=== PATIENT | male | born 1945 | race Caucasian/White ===

== ENCOUNTER → 2017-04-02 | Outpatient (CLI) | payer MEDICARE ==
--- NOTE | 2017-04-02 22:58 | XCELERA REPORT ---
[address] [address] Transthoracic Echocardiogram Report Name: CLIFF DONATO Age: 71 yrs Gender: Male : 1945 Patient Status: Outpatient Patient Location: Study Date: 04/02/2017 07:54 AM Height: 68 in Weight: 150 lb BSA: 1.8 m2 Procedure: A complete two-dimensional transthoracic echocardiogram was performed (2D, M-mode, spectral and color flow Doppler). The study was technically adequate with some images being suboptimal in quality. Reason For Study: MURMUR Ordering Physician: GARY BROWN Performed By: Mindy Leroy Interpretation Summary The left ventricular ejection fraction is within normal limits. Doppler measurements suggest pseudonormalized left ventricular relaxation, which is associated with grade II/IV or mild to moderate diastolic dysfunction There is borderline concentric left ventricular hypertrophy. The left ventricle is grossly normal size. Wall motion cannot be accurately commented on, but no definite regional wall motion abnormalities noted. The right ventricle is mildly dilated. The right ventricle appears to be hypertrophied The left atrium is mildly dilated. The right atrium is mildly dilated. Highly mobile mass consistent with a torn or redundant chordae seen. Also consider vegetation in DD if clinically consoistent. There is a moderate to severe amount of mitral regurgitation There is no mitral valve stenosis. There is a mild amount of aortic regurgitation There is no aortic valve stenosis There is a mild amount of tricuspid regurgitation There is moderate pulmonary hypertension by echo Right ventricular systolic pressure is estimated to be elevated at 40- 50mmHg. The aortic root is not well visualized but is probably normal size. The inferior vena cava appeared normal and decreased > 50% with respiration (RAP 5-10 mmHg) Minimal pericardial effusion. MMode/2D Measurements \T\ Calculations RVDd: 2.8 cm LVIDd: 5.0 cm FS: 53.5 % Ao root diam: 3.0 cm IVSd: 0.95 cm LVIDs: 2.3 cm EDV(Teich): 117.7 ml LVPWd: 0.88 cm ESV(Teich): 18.5 ml Ao root area: 7.1 cm2 EF(Teich): 84.3 % Doppler Measurements \T\ Calculations MV E max sawyer: MV dec slope: Ao V2 max: AI max sawyer: 114.8 cm/sec 107.0 cm/sec 416.5 cm/sec MV A max sawyer: 590.9 cm/sec2 Ao max PG: AI max P.5 cm/sec MV dec time: 4.6 mmHg 69.4 mmHg MV E/A: 2.0 0.19 sec AI dec slope: 142.2 cm/sec2 AI P1/2t: 858.2 msec LV V1 max PG: MR max sawyer: PA V2 max: TR max sawyer: 3.3 mmHg 699.8 cm/sec 57.6 cm/sec 288.7 cm/sec LV V1 max: MR max PG: PA max PG: TR max P.8 cm/sec 195.9 mmHg 1.3 mmHg 33.7 mmHg Left Ventricle The left ventricle is grossly normal size. There is borderline concentric left ventricular hypertrophy. The left ventricular ejection fraction is within normal limits. Doppler measurements suggest pseudonormalized left ventricular relaxation, which is associated with grade II/IV or mild to moderate diastolic dysfunction. Wall motion cannot be accurately commented on, but no definite regional wall motion abnormalities noted. Right Ventricle The right ventricle is mildly dilated. The right ventricle appears to be hypertrophied. The right ventricular systolic function is normal. Atria The right atrium is mildly dilated. The left atrium is mildly dilated. Interarterial septum not well visualized and not well dopplered. Cannot comment on ASD/PFO presence. Mitral Valve The mitral valve leaflets are sclerotic and show some degree of functional abnormality. Highly mobile mass consistent with a torn or redundant chordae seen. There is no mitral valve stenosis. There is a moderate to severe amount of mitral regurgitation. Aortic Valve The aortic valve is sclerotic, but shows no functional abnormality. There is no aortic valve stenosis. There is a mild amount of aortic regurgitation. Tricuspid Valve The tricuspid valve is not well visualized, but is grossly normal. There is no tricuspid stenosis. There is a mild amount of tricuspid regurgitation. There is moderate pulmonary hypertension by echo. Right ventricular systolic pressure is estimated to be elevated at 40-50mmHg. Pulmonic Valve The pulmonic valve is not well visualized. Great Vessels The aortic root is not well visualized but is probably normal size. The inferior vena cava appeared normal and decreased > 50% with respiration (RAP 5-10 mmHg). Effusions Minimal pericardial effusion. : GARY BROWN > Randolph Muñiz
== END ==
LOC: SP 07:38
PROVIDERS: ATTEND Family Medicine
DX: R01.0 Benign and innocent cardiac murmurs (principal)
CPT/HCPCS: 93306